=== PATIENT | female | born 1995 | race Caucasian/White ===

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

== ENCOUNTER 2017-09-15 08:32 | Emergency (ER) | payer MEDICAID ==
[~2017-09-15] VITALS: Ht 172.7 cm; Wt 63.6 kg
[~2017-09-15 08:32] MED LIST changes: +IBU800 M1 PO
[2017-09-15 08:36] VITALS: BP 120/56; TEMP 100.3
[2017-09-15 09:38] LABS: COLLECTION METHOD CATHETER
[2017-09-15 09:44] LABS: INFLUENZA A NEGATIVE; INFLUENZA B NEGATIVE
[2017-09-15 09:50] LABS: STREP SCREEN POSITIVE
[2017-09-15 10:08] LABS: PH 7 (5-8); SQUAMOUS EPITHELIAL None Seen /hpf; URINE APPEARANCE Clear; URINE BACTERIA None Seen /hpf; URINE BILIRUBIN Negative (NEGATIVE); URINE BLOOD Negative (NEGATIVE); URINE COLOR Straw; URINE GLUCOSE Negative (NEGATIVE); URINE KETONE Negative (NEGATIVE); URINE LEUKOCYTE ESTERASE Negative (NEGATIVE); URINE PROTEIN(semi-quant) Negative (NEGATIVE); URINE RBC 0-2 /hpf; URINE UROBILINOGEN Negative (NEGATIVE); URINE WBC 0-2 /hpf
[2017-09-15 10:20] VITALS: PULSE 85
== END 2017-09-15 10:21 | disposition home or self-care (01) ==
LOC: COL.ER 08:32
PROVIDERS: Physician Assistant
DX: J02.0 Streptococcal pharyngitis (principal); Z98.890 Other specified postprocedural states
CPT/HCPCS: J0561

== ENCOUNTER 2018-11-02 12:44 | Outpatient (CLI) | payer MEDICAID ==
[~2018-11-02] VITALS: Ht 172.7 cm; Wt 84.5 kg
[2018-11-02 13:01] VITALS: BP 149/82; PULSE 80; TEMP 97.7
[2018-11-02] MEDS ORDERED: PRENATAL (13:06)
[2018-11-02] MEDS ORDERED: PROTONIX 40MG T40 MG PO (13:06)
[2018-11-02 13:25] VITALS: BP 143/86; PULSE 83
[2018-11-02 13:55] VITALS: BP 142/84; PULSE 82
[2018-11-02 14:25] VITALS: BP 131/72; PULSE 76
[2018-11-02 15:25] VITALS: BP 130/71; PULSE 78
[2018-11-02 15:50] VITALS: BP 137/79; PULSE 77
[2018-11-03] MEDS ORDERED: IBU800 M1 PO (11:49)
== END 2018-11-02 15:50 | disposition home or self-care (01) ==
LOC: LDRO 12:44 → LDR 13:33 → LDRO 15:50
DX: O62.9 Abnormality of forces of labor, unspecified (principal); Z3A.38 38 weeks gestation of pregnancy
CPT/HCPCS: OP

== ENCOUNTER 2018-11-02 20:17 | Inpatient (IN) | payer MEDICAID ==
[~2018-11-02] VITALS: Ht 172.7 cm; Wt 84.5 kg
[2018-11-02] VITALS (7 sets, daily range): BP systolic 126–138; BP diastolic 63–89; PULSE 69–88; TEMP 98.4
[~2018-11-02 20:17] MED LIST changes: +PROTONIX 40MG T40 MG PO
[2018-11-02 22:32] LABS: BASO % 0.2 % (0.0-2.0); EOS % 0.1 % (0-4.0); GRAN # 12.6 (1.4-6.5); GRAN % 80.8 % (42.2-75.2); HEMOGLOBIN 11.3 g/dl (12.5-16.0); LYMPH # 2.2 (1.2-3.4); MEAN CELL VOLUME 87 fl (80.0-100.0); MEAN CORPUSCULAR HEMOGLOBIN 28 pg (27.0-31.0); MEAN CORPUSCULAR HGB CONC 32 g/dl (33.0-37.0); MEAN PLATELET VOLUME 11.1 fl (7.4-10.4); MONO # 0.7 (0.1-0.6); MONO % 4.4 % (1.7-9.3); PLATELET COUNT 239 K/mm3 (130-400); RED BLOOD COUNT 4.02 M/mm3 (4.10-5.30); REDCELL DISTRIBUTION WIDTH-CV 13.2 % (11.5-14.5)
[2018-11-02 22:33] LABS: HEMATOCRIT 34.9 % (37.0-47.0)
[2018-11-03] VITALS: BP 115/68; PULSE 80
[2018-11-03 01:15] VITALS: BP 107/64; PULSE 90; TEMP 98.7
[2018-11-03 05:00] VITALS: BP 131/76; PULSE 72; TEMP 97.6
[2018-11-03 08:45] VITALS: BP 125/84; PULSE 85; TEMP 98.2
[2018-11-03] MEDS ORDERED: IBU800 M1 PO (11:49)
[2018-11-03 16:30] VITALS: BP 128/74; PULSE 78; TEMP 97.7
[2018-11-03 20:00] VITALS: BP 123/65; PULSE 72; TEMP 98.3
[2018-11-04 08:30] VITALS: BP 127/67; PULSE 94; TEMP 98.2
== END 2018-11-04 12:00 | disposition home or self-care (01) | DRG 807 ==
LOC: LDRO 20:17 → LDR 21:54 → OB 11-03 00:10
PROVIDERS: Student in an Organized Health Care Education/Training Program
PROC: 10E0XZZ Delivery of Products of Conception, External Approach (ICD-10-PCS; principal; 2018-11-02)
DX: O62.3 Precipitate labor (principal); Z37.0 Single live birth; Z3A.38 38 weeks gestation of pregnancy
CPT/HCPCS: J2590

== ENCOUNTER 2020-06-10 10:56 | Outpatient (CLI) | payer MEDICAID ==
[~2020-06-10] VITALS: Ht 172.7 cm; Wt 99.5 kg
[2020-06-10 11:07] VITALS: BP 134/79; PULSE 86; TEMP 98.4
[2020-06-10] MEDS ORDERED: TYLENOL 325MG325 MG PO (11:18)
[2020-06-10 11:30] VITALS: BP 134/79; PULSE 86; TEMP 98.4
--- NOTE | 2020-06-10 11:30 | NUR ---
1105- Pt arrives on unit ambulatory with complaints of cramping since 0300 this morning. Denies VB, LOF. +FM. Pt stats she had diarhea this morning also. 1110- Pt into bed, EFM and TOCO on and tracing. VSS. Assessment completed.
[2020-06-10 12:00] VITALS: BP 122/74; PULSE 74
[2020-06-10 12:30] VITALS: BP 117/76; PULSE 83
[2020-06-10 13:00] VITALS: BP 124/71; PULSE 62
[2020-06-10 13:37] VITALS: BP 130/81; PULSE 73
--- NOTE | 2020-06-10 13:37 | NUR ---
1337- EFM and TOCO off. Pt up to change into street clothes. 1345- Discharge paperwork given and explained. Questions answered. Pt ambulates off unit in stable condition.
== END 2020-06-10 13:50 | disposition home or self-care (01) ==
LOC: LDRO 10:56 → COL.LAB 10:56 → LDR 11:01 → LDRO 13:50
DX: O26.893 Other specified pregnancy related conditions, third trimester (principal); Z3A.37 37 weeks gestation of pregnancy; R25.2 Cramp and spasm; Z86.19 Personal history of other infectious and parasitic diseases
CPT/HCPCS: OP

== ENCOUNTER → 2020-06-26 | Outpatient (CLI) | payer MEDICAID ==
[~2020-06-26] MED LIST changes: +TYLENOL 325MG325 MG PO
== END ==
LOC: ZCOL.LAB 09:00
DX: Z20.828 Contact with and (suspected) exposure to other viral communicable diseases (principal)

== ENCOUNTER 2020-07-02 07:09 | Inpatient (IN) | payer MEDICAID ==
[2020-07-02] VITALS (25 sets, daily range): BP systolic 119–147; BP diastolic 63–97; PULSE 62–96; TEMP 97.8–98.1
[~2020-07-02] VITALS: Ht 172.7 cm; Wt 96.8 kg
--- NOTE | 2020-07-02 07:15 | NUR ---
Patient ambulatory to LR6 with spouse, changed into gown, FHR/TOCO monitors placed. Patient denies any regular contractions/leaking of fluid/vaginal bleeding/decreased movement. Plan of care discussed. Assessment completed/consents signed/ packet given. 0725: IV started in left hand, blood drawn and to lab, LR infusing. Plan of induction of pitocin discussed and patient understand and agrees. 0738: Pitocin started at 2mU and plan discussed. 0848: Dr. Dawson at bedside assessing patient and FHR strip. 0850: SVE-3/70/-2 and AROM at this time with clear fluid noted. 0940: Patient requesting epidural and [employer] notified. 0943: Patient off monitor to void. 0948: Patient sitting on edge of bed for placement of epidural and [employer] at beside. Difficulty tracing FHR due to maternal position. 0955: Test dose given and patient tolerates well. 1000: Patient repositioned wedged left and safety precautions gone over. 1045: Patient comfortable with epidural and quintero catheter placed. 1050: SVE-8/90/-1 1056: Dr. Dawson called and updated. See physician notification.
[2020-07-02 08:03] LABS: BASO % 0.2 % (0.0-2.0); EOS # 0.1 (0.0-0.7); EOS % 0.6 % (0-4.0); GRAN # 6.5 (1.4-6.5); GRAN % 66.6 % (42.2-75.2); HEMOGLOBIN 10.6 g/dl (12.5-16.0); LYMPH # 2.5 (1.2-3.4); LYMPH % 24.9 % (20.0-51.0); MEAN CELL VOLUME 80 fl (80.0-100.0); MEAN CORPUSCULAR HEMOGLOBIN 25 pg (27.0-31.0); MEAN CORPUSCULAR HGB CONC 31 g/dl (33.0-37.0); MEAN PLATELET VOLUME 11.6 fl (7.4-10.4); MONO # 0.7 (0.1-0.6); MONO % 7.4 % (1.7-9.3); PLATELET COUNT 257 K/mm3 (130-400); RED BLOOD COUNT 4.26 M/mm3 (4.10-5.30)
[2020-07-02 08:05] LABS: HEMATOCRIT 33.9 % (37.0-47.0)
--- NOTE | 2020-07-02 11:45 | NUR ---
Patient states she is feeling a little more pressure and SVE-10/100/0. 1150: Barber catheter removed and patient tolerates well. 1156: Dr. Dawson called for delivery -see physician notification. 1210: Dr. Dawson at bedside and patient prepped for vaginal delivery. 1214: Patient pushes with contraction per Dr. Rae orders. 1215: Spontaneous vaginal delivery of viable male infant-head followed by body. Infant bulb syringed and to patients abdomen and SDede RN assumes care of . Cord clamped by physician and cut by FOB. Cord blood obtained. 1220: Spontaneous delivery of placenta and pitocin bolus started at 333mU per protocol. Fundal massage done/firm/bleeding WNL. Patient intact and pericare done. Patient repositioned and ice pack to perineum. Plan of care discussed. 1245: Fundal massage done and fist size clot expressed. Fundus firm, bleeding slowing down and will continue to monitor.
[2020-07-03 04:00] VITALS: BP 126/77; PULSE 62; TEMP 97.8
[2020-07-03 07:45] VITALS: BP 131/88; PULSE 69; TEMP 97.9
[2020-07-03] MEDS ORDERED: IBU800 M1 PO (08:37)
[2020-07-03] MEDS ORDERED: PERCOCET 325 MG1 TA2 PO (08:37)
== END 2020-07-03 15:45 | disposition home or self-care (01) | DRG 807 ==
LOC: LDR 07:09 → OB 07:09
PROVIDERS: ADMIT Student in an Organized Health Care Education/Training Program
PROC: 10E0XZZ Delivery of Products of Conception, External Approach (ICD-10-PCS; principal; 2020-07-02)
PROC: 10907ZC Drainage of Amniotic Fluid, Therapeutic from Products of Conception, Via Natural or Artificial Opening (ICD-10-PCS; 2020-07-02)
PROC: 3E033VJ Introduction of Other Hormone into Peripheral Vein, Percutaneous Approach (ICD-10-PCS; 2020-07-02)
DX: O99.344 Other mental disorders complicating childbirth (principal); Z37.0 Single live birth; F32.9 Major depressive disorder, single episode, unspecified; O99.613 Diseases of the digestive system complicating pregnancy, third trimester; K21.9 Gastro-esophageal reflux disease without esophagitis; Z3A.39 39 weeks gestation of pregnancy
CPT/HCPCS: J2590; J7120

== ENCOUNTER 2021-06-15 22:19 | Inpatient (IN) | payer MEDICAID ==
[~2021-06-15] VITALS: Ht 172.7 cm; Wt 98.6 kg
--- NOTE | 2021-06-15 22:15 | NUR ---
2215- PATIENT WHEELED ON UNIT. ORIENTATED TO ROOM AND HELPED CHANGED INTO CLEAN GOWN. PATIENT IS A AT 37.1, PATIENT OF DR. MONROE, WHO PRESENTS BECAUSE SHE SROM'D AT HOME AROUND 2129 AND IS LABORING AND UNCOMFORTABLE. 2221- EFM AND TOCO ON AND TRACING. ASSESSMENT COMPLETED. VITALS TAKEN. PATIENT SVE 8/100/-2. 2223- PROVIDER CALLED, SEE PHYSICIAN NOTIFICATION. 2230- IV STARTED AND FLUIDS RUNNING. 2245- PATIENT INCREASING MORE UNCOMFORTABLE AND STATED THAT THERE WAS A LOT MORE PRESSURE. THIS RN CHECK AND PATIENT IS COMPLETE AND +2. PROVIDER NOTIFIED AND ON UNIT. PATIENT AND ROOM SET UP FOR DELIVERY. 2250- OF VIABLE FEMALE . PLACED TO MOTHER ABDOMEN WHERE NURSERY NURSE ASSUMES CARE AT THIS TIME. 2254- OF PLACENTA. PITOCIN STARTED PER PROTOCOL AT 333ML/HR. FUNDUS MASSAGED TO FIRM BY THIS RN. PROVIDER STATED THAT PATIENT WAS INTACT. EBL NOTED TO BE 200. PATIENT AND ROOM CLEANED UP AND PUT BACK TOGETHER. 2300- VITALS STABLE, FUNDUS FIRM. NEW CHUX, PERIPAD AND ICEPACK TO PERINEUM. RECOVERY STARTED.
[~2021-06-15 22:19] MED LIST changes: +PERCOCET 325 MG1 TA2 PO
[2021-06-15 22:30] VITALS: BP 141/91; PULSE 92; TEMP 98.7
[2021-06-15 22:50] VITALS: BP 131/78; PULSE 86
[2021-06-15 23:00] VITALS: BP 135/79; PULSE 89; TEMP 98.7
[2021-06-15 23:14] LABS: BASO % 0.2 % (0.0-2.0); EOS # 0.1 (0.0-0.7); EOS % 0.7 % (0-4.0); GRAN % 68.8 % (42.2-75.2); HEMOGLOBIN 10.4 g/dl (12.5-16.0); LYMPH # 2.8 (1.2-3.4); MEAN CELL VOLUME 75 fl (80.0-100.0); MEAN CORPUSCULAR HEMOGLOBIN 24 pg (27.0-31.0); MEAN CORPUSCULAR HGB CONC 31 g/dl (33.0-37.0); MEAN PLATELET VOLUME 10.8 fl (7.4-10.4); MONO # 0.7 (0.1-0.6); MONO % 5.9 % (1.7-9.3); PLATELET COUNT 302 K/mm3 (130-400); RED BLOOD COUNT 4.39 M/mm3 (4.10-5.30); REDCELL DISTRIBUTION WIDTH-CV 15.7 % (11.5-14.5)
[2021-06-15 23:15] VITALS: BP 128/74; PULSE 74
[2021-06-15 23:24] LABS: HEMATOCRIT 33.1 % (37.0-47.0)
[2021-06-15 23:30] VITALS: BP 128/71; PULSE 83
[2021-06-15 23:45] VITALS: BP 121/72; PULSE 66
[2021-06-16] VITALS (8 sets, daily range): BP systolic 112–129; BP diastolic 55–84; PULSE 59–72; TEMP 97.4–98.2
[2021-06-16] MEDS ORDERED: IBU800 M1 PO (12:30)
[2021-06-17 08:01] VITALS: BP 124/74; PULSE 69; TEMP 97.5
== END 2021-06-17 10:45 | disposition home or self-care (01) | DRG 807 ==
LOC: LDRO 22:19 → LDR 22:27 → OB 22:27 → LDR 22:28 → OB 06-16 00:48
PROVIDERS: ADMIT Student in an Organized Health Care Education/Training Program
PROC: 10E0XZZ Delivery of Products of Conception, External Approach (ICD-10-PCS; principal; 2021-06-15)
DX: O99.02 Anemia complicating childbirth (principal); Z37.0 Single live birth; O99.62 Diseases of the digestive system complicating childbirth; O99.344 Other mental disorders complicating childbirth; F32.9 Major depressive disorder, single episode, unspecified; O99.214 Obesity complicating childbirth; E66.9 Obesity, unspecified; Z3A.37 37 weeks gestation of pregnancy
CPT/HCPCS: J2590; J7120

== ENCOUNTER 2022-03-16 10:39 | Emergency (ER) | payer MEDICAID ==
[~2022-03-16] VITALS: Ht 172.7 cm; Wt 100.0 kg
[2022-03-16 10:48] VITALS: BP 126/73; PULSE 70; TEMP 97.5
== END 2022-03-16 12:34 | disposition home or self-care (01) ==
LOC: COL.ER 10:39
DX: S93.401A Sprain of unspecified ligament of right ankle, initial encounter (principal); X50.1XXA Overexertion from prolonged static or awkward postures, initial encounter

== ENCOUNTER → 2023-01-24 | Outpatient (CLI) | payer OTHER ==
[~2023-01-24] MED LIST changes: +AMOXICILLIN 50500 MG PO
== END ==
LOC: COL.RAD 10:23
DX: S52.124A Nondisplaced fracture of head of right radius, initial encounter for closed fracture (principal); V89.2XXA Person injured in unspecified motor-vehicle accident, traffic, initial encounter

== ENCOUNTER 2023-03-29 11:26 | Emergency (ER) | payer MEDICAID ==
[~2023-03-29] VITALS: Ht 172.7 cm; Wt 95.5 kg
[2023-03-29 11:31] VITALS: TEMP 98.3
[2023-03-29 13:01] VITALS: BP 123/76; PULSE 64
== END 2023-03-29 13:01 | disposition home or self-care (01) ==
LOC: COL.ER 11:26
DX: S60.221A Contusion of right hand, initial encounter (principal); Y04.8XXA Assault by other bodily force, initial encounter

== ENCOUNTER 2023-09-22 21:19 | Emergency (ER) | payer MEDICAID ==
[~2023-09-22] VITALS: Ht 172.7 cm; Wt 95.5 kg
[2023-09-22] MEDS ORDERED: CRUTCHES MC (22:11)
[2023-09-22 22:15] VITALS: BP 104/77; PULSE 76
== END 2023-09-22 22:15 | disposition home or self-care (01) ==
LOC: COL.ER 21:19
DX: S93.401A Sprain of unspecified ligament of right ankle, initial encounter (principal); X50.1XXA Overexertion from prolonged static or awkward postures, initial encounter

== ENCOUNTER 2024-06-13 23:52 | Emergency (ER) | payer OTHER, MEDICAID ==
[~2024-06-13] VITALS: Ht 172.7 cm; Wt 97.7 kg
[~2024-06-13 23:52] MED LIST changes: +CRUTCHES MC
[2024-06-13 23:58] VITALS: TEMP 98.3
[2024-06-14 02:01] VITALS: BP 140/77; PULSE 64
== END 2024-06-14 02:01 | disposition home or self-care (01) ==
LOC: COL.ER 23:52
DX: T59.4X1A Toxic effect of chlorine gas, accidental (unintentional), initial encounter (principal); R07.9 Chest pain, unspecified; X58.XXXA Exposure to other specified factors, initial encounter